=== PATIENT | male | born 2005 ===

== ENCOUNTER 2025-07-14 14:28 | Outpatient (REF) | payer OTHER, SELFPAY ==
--- NOTE | ~2025-07-14 | MR_ITS ---
EXAMINATION: MR HIP WITHOUT CONTRAST, RIGHT CLINICAL INFORMATION: Right hip pain COMPARISON: None available. TECHNIQUE: MRI of the right hip was obtained using routine sequences on a high-field strength magnet. FINDINGS: BONE/JOINTS: Right hip alignment is anatomic. No evidence of acute fracture, avascular necrosis. Small area of slightly asymmetrically prominent T2 signal in the proximal femoral shaft, could reflect physiological variant red marrow versus mild edema from etiology such as osseous contusion or stress reaction. No fracture plane is seen. No high-grade chondral loss. Hip joint space is maintained. Pubic rami appear intact. The visualized inferior right SI joint appears unremarkable. LABRUM: No labral tear is seen. No evidence of para labral cyst. MUSCLES/TENDONS: Minimal T2 signal along the deep surface of the gluteus medius tendon, could represent mild nonspecific edema or mild tendinosis. Gluteus minimus is intact. Minimal T2 signal in the iliopsoas myotendinous region, could reflect mild strain. The iliopsoas tendon is intact. JOINT FLUID/BURSA: No significant hip joint effusion. No significant greater trochanteric or iliopsoas bursitis. Additional findings:: No right groin lymphadenopathy. No acute findings in the partially visualized pelvis. On the coronal T1 sequence of the pelvis, there is normal left hip articulation. SI joints and symphysis pubis are intact.. MR/MR hip RT wo con IMPRESSION: 1. Small area of slightly asymmetrically prominent T2 signal in the proximal femoral shaft could represent physiological variant red marrow versus mild etiologies such as osseous contusion or stress reaction. 2. No labral tear is identified 3. Possible mild gluteus medius tendinosis, clinically correlate. 4. Possible mild iliopsoas myotendinous region strain.. Electronically signed by: Kanu Navarrete MD 07/14/2025 03:46 PM EST
--- OUTSIDE RECORDS SUMMARY | 2025-07-14 16:59 | XMS_ITS | Clinical Summary ---
Author Organization [facility] Address [address] [place] [address] Care Team Providers Care Senior Program Analyst Name Role Phone Lauren Bustos) Zoe Primary C are Provider Source Comments NOTE: The information displayed by Care Everywhere is extracted from the complete medical record and may not identify all current or past patient conditions.[facility] Allergies Active Allergy Reactions Criticality Noted Date Comments Dog Epithelium Skin Rash and/or Hives Low 8 Peanut - Dietary Anaphylaxis High 02/16/2018 Medications Fluticasone (FLONASE ALLERGY RELIEF) 50 mcg/actuation Nasl SpSnIndications :BILAT OTITIS MEDIA W EFFUSION Use 2 sprays in each nostril daily. Reduce to 1 spray in each nostril daily when symptoms improve 15.8 0 3 05/22/20 27 Active Albuterol (PROAIR/PROVENT IL/VENTOLIN) 90 mcg/actuation Inhl HFAAIndications :COMMUNITY ACQUIRED PNEUMONIA Inhale 2 puffs by mouth every 4 hours as needed for shortness of breath , wheezing or cough . 100 days supply for Asthma is 1 canister. Use with spacer device if prescribed. Shake well before use 6.7 g 10/27/2024 1:42 PM PST 5 10/27/19 27 Active Benzonatate (TESSALON PERLES) 100 mg Oral CapIndications: COMMUNITY ACQUIRED PNEUMONIA Take 1 capsule by mouth 3 times a day as needed for cough 30 capsule 10/27/2024 1:42 PM PST 5 10/27/19 27 Active Hydrocortisone 2.5 % Top CreaIndications :RASH Apply to affected area(s) 2 times a day 28 g 1 01/13/2025 2:16 PM PDT 5 01/14/20 27 Active Clotrimazole (LOTRIMIN AF/MYCELEX) 1 % Top CreaIndications :RASH Apply to affected area(s) 2 times a day 30 g 01/13/2025 2:16 PM PDT 5 01/14/20 27 Active Active Problems Problem Noted Date Diagnosed Date 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 PERENNIAL ALLERGIC RHINITIS 06/23/2020 INTERMITTENT ASTHMA 06/23/2020 FOOD ALLERGY 06/23/2020 [place] SPLINTS OF BILAT LEGS 06/23/2020 Resolved Problems Problem Noted Date Diagnosed Date Resolved Date COVID-19 DISEASE 04/23/2021 05/24/2021 COVID-19 TEST POSITIVE BY OUTSIDE LABORATORY 04/26/2021 HX OF COVID-19 DISEASE 04/23/202101/26 Immunizations Immunization Administration Dates Next Due COVID-19 mRNA, LNP-S, PF (Glimpse) PURPLE CAP 06/14/2021,05/17/2021 06/07/2021 DTaP (Diphtheria, Tetanus, a cellular Pertussis) 01/20/2010,10/23/2009,03/22/2007,,2005,2005 HAV ped/adol 2 dose yossi (Hepatitis A) 09/24/2007 ,03/22/2007 HBV ped/adol, 3dose yossi (Hepatitis B) 08/08/2006 ,2005,2005 HIB (Haemophilus influenzae b) 08/08/2008,2005,2005 HPV4 (Human papillomavirus, quadrivalent) 04/04/2017,05/16/2016 INF (Influenza) unspecified formulation 05/19/2016,06/25/2008,06/12/2007,01/2006,07/07/2006 INF D2K2-32 (Influenza, 2009 type) unspecified formulation 10/12/2009,09/09/2009 INFS pres free 6mos-adult (F luarix quadrivalent) (influenza) 06/23/2020 INFS pres free 6mos-adult (F luzone quadrivalent) (influenza) 05/05/2023 MENACWY (MENVEO) (MENINGOCOC NISHA OLIGOSACCHARIDE ACWY-135) 05/16/2016 MMR (Measles, Mumps, Rubella) 10/23/2009, 006 PCV7 (PREVNAR) (Pneumococcal conjugate, 7 valent) 08/08/2006,01/20/2006,2005,02/2005 KELLE (Polio ) 01/20/2010, 6,2005,02/2005 KELLE-IPV (Polio, Inactivated virus) 10/23/2009 Tdap (Tetanus, diphtheria, a cellular pertussis) 05/16/2016 SHANE (Varicella, chickenpox) 10/23/2009, 6 Social History Tobacco Use Types Packs/Day Years Used Date Smoking Tobacco: Never Passive Smoke Exposure: Yes Smokeless Tobacco: Never Tobacco Cessation:Counseling Given: Not Answered Sex and Gender Information Value Date Recorded Sex Assigned at Not on file Legal Sex Male 8:25 AM PST Gender Identity Not on file Sexual Orientation Not on file Last Filed Vital Signs Vital Sign Reading Time Taken Comments Blood Pressure 115/54 01/13/2025 1:25 PM PDT Pulse 62 01/13/2025 1:25 PM PDT Temperature 36.1 C (97 F) 01/13/2025 1:25 PM PDT Respiratory Rate 20 01/13/2025 1:25 PM PDT Oxygen Saturation 95% 01/13/2025 1:25 PM PDT Inhaled Oxygen Concentration - - Weight 71.9 kg (158 lb 8.2 oz) 01/13/2025 1:25 P M PDT Height 185.4 cm (6' 1 ) 01/13/2025 1:25 PM PDT Body Mass Index 20.91 01/13/2025 1:25 PM PDT Plan of Treatment Health Maintenance Due Date Last Done Comments IMM INFLUENZA (6 MO AND OLDE R) (#1) 05/05/2025 05/05/2023, 06/23/2020, 05/19/2016, Additional history exists IMM DTAP,TDAP,TD (42 DAYS-12 0 YRS) (7 - Td or Tdap) 05/16/2026 05/16/2016, 01/20/2010, 10/23/2009, Additional history exists IMM HPV (9-26 YRS) Completed 04/04/2017, 05/16/2016 Insurance [employer] Care Teams Senior Program Analyst Relationship Specialty Start Date End Date Lauren Bustos M.D., Zoe [address] [place] [address] PCP - General Family Practice 03/21/23
--- OUTSIDE RECORDS SUMMARY | 2025-07-14 17:00 | XMS_ITS | Encounter Summary ---
Author Organization [facility] Address [address] [place] [address] Care Team Providers Care Jewelry Dipper Name Role Phone Syd Waters) Ariela.O. Primary Care Provid er Lauren Bustos M.D., M.D. Primary C are Provider Reason for Visit * Reason Comments TEST RESULTS TEST RESULTS Encounter Details Date Type Department Care Team (Latest Contact Info) Description 10/25/2022 Call Center Telephone Encounter PEDIATRICS. [address] [place] [address] Syd Waters), D.O. [address] [place] [address] TEST RESULTS (TEST RESULTS) Social History Tobacco Use Types Packs/Day Years Used Date Smoking Tobacco: Passive Smo ke Exposure - Never Smoker Smokeless Tobacco: Never Sex and Gender Information Value Date Recorded Sex Assigned at Not on file Legal Sex Male 8:25 AM PST Gender Identity Not on file Sexual Orientation Not on file documented as of this encounter Plan of Treatment Not on file documented as of this encounter Visit Diagnoses Not on filedocumented in this encounter Care Teams Jewelry Dipper Relationship Specialty Start Date End Date Syd Waters), D.O. [address] [place] [address] PCP - General 04/07/22 03/20/23 Lauren Bustos M.D., [place].D. [address] [place] [phone] PCP - General Family Practice 03/21/23 documented as of this encounter
--- OUTSIDE RECORDS SUMMARY | 2025-07-14 17:00 | XMS_ITS | Encounter Summary ---
Author Organization [facility] Address [address] [facility] [place] [address] Care Team Providers Care Construction Inspector Name Role Phone Syd Waters) Ariela.OLucina Primary Care Provid er Lauren Bustos M.D., M.D. Primary C are Provider Encounter Details Date Type Department Care Team (Late st Contact Info) Description 07/21/2022 Orders Only [facility] ADMIN DEPT [address] [place] [address] Scal E-Visit, Provider Zoe Enriquez [address] [place] [address] VACCINATION FOR SARS-COV-2 Social History Tobacco Use Types Packs/Day Years [...] documented as of this encounter Visit Diagnoses Diagnosis VACCINATION FOR SARS-COV-2 documented in this encounter Care Teams Construction Inspector Relationship Specialty Start Date End Date Syd Waters), D.O. [address] [place] [address] PCP - General 04/07/22 03/20/23 Lauren Bustos), Zoe [address] [place] [address] PCP - General Family Practice 03/21/23 documented as of this encounter
--- OUTSIDE RECORDS SUMMARY | 2025-07-14 17:00 | XMS_ITS | Clinical Summary ---
Author Organization [facility] [facility] [place] [facility] [place] Address [address] [place] [address] Care Team Providers Care Chair Upholsterer Name Role Phone Unavailable Primary Care Provider Unavailabl e Allergies Active Allergy Reactions Criticality Noted Date Comments Amoxicillin-Pot Clavulanate Diarrhea 12/10/19 Peanut-Derived Hives High 12/10/2019 Immunizations Immunization Administration Dates Next Due (Chicken Pox) Varicella Live Vaccine 10/23/2009, 08/08/2006 DTaP 10/23/2009, 7,01/20/2006,2005,2005 H1N1 Vaccine 10/12/2009,09/09/2009 Hep-A Ped/Adol 2 Dose Schedule 09/24/2007,2006 Hib-HepB (COMVAX) 08/08/2006,2005,06/09/20 05 Inactivated Polio Vaccine (IPV) 10/23/19 10,01/20/2006,2005,2004 Influenza Vaccine (Unspecified) 06/25/20 08,06/12/2007,08/08/2006,2005 MMR Live Vaccine 10/23/2009,08/08/2006 Pneumococcal 7 Vaccine (PREVNAR-7) 08/08,01/20/2006,2005,2004 Social History Tobacco Use Types Packs/Day Years Used Date Smoking Tobacco: Never Assessed Drug Use (DAST) Answer Date Recorded DAST Total Score Not on file 05/03/2023 Sex and Gender Information Value Date Recorded Sex Assigned at Not on file Legal Sex Male 10:13 AM PDT Gender Identity Not on file Sexual Orientation Not on file Plan of Treatment Health Maintenance Due Date Last Done Comments Tetanus (6 - Tdap) 2016 10/23/2009, 0 03/22/2007, 01/20/2006, Additional history exists HPV Vaccine <= 26 Yrs (1 - Male 3-dose series) 2020 Meningococcal B (1 of 2 - Standard) 2021 Cholesterol Screening (Ages: 9-11 & 17-21) 2022 Influenza (#1) 2025 10/12/2009, 02/2010, 06/25/2008, Additional history exists COVID-19 Vaccine (1 - 2024- season) 2025 Shingles Vaccine (1 of 2) 2055 10/23/2009, 01/2006 Pneumococcal Vaccine Aged Out 08/08/2006, 01/20/2006, 2005, Additional history exists No longer eligible based on patient's age to complete this topic Hep A Vaccine Series Completed 09/24/2007, 03/22/20 07 Polio Vaccine Completed 10/23/2009, 01/02, 2005, Additional history exists Meningococcal MCV4 Vaccine Aged Out N o longer eligible based on patient's age to complete this topic
--- OUTSIDE RECORDS SUMMARY | 2025-07-14 17:00 | XMS_ITS | Encounter Summary ---
Author Organization [facility] Address [address] [place] [address] Care Team Providers Care Plumbing Designer Name Role Phone Unavailable Primary Care Provider Unavailabl e Prior Encounters Date Type Department Care Team Description 03/17/2025 1:30 PM PDT Office Visit [facility] [address] [facility], [address] [phone] Kwan Masters, JEN Last Filed Vital Signs Vital Sign Reading Time Taken Comments Blood Pressure 119/72 03/17/2025 1:42 PM PDT Pulse 76 03/17/2025 1:42 PM PDT Temperature - - Respiratory Rate - - Oxygen Saturation - - Inhaled Oxygen Concentration - - Weight - - Height - - Body Mass Index - - Plan of Treatment Upcoming Encounters Date Type Department Care Team (Late st Contact Info) Description 08/27/2025 10:30 AM PST Office Visit [facility] [address] [facility], [facility] [address] [place] [phone] Samantha Vazquez, JOSHUA [address] [place], [place] [phone] Procedures Procedure Name Priority Date/Time Associated Diagnosis Comments NEW PATIENT INTRAORAL - PERIAPICAL FIRST RADIOGRAPHIC IMAGE Routine 03/17/2025 1:30 PM PDT NEW PATIENT SPECIAL EXAM - ADULT Routine 03/17/2025 1:30 PM PDT NEW PATIENT INTRAORAL - PERIAPICAL EACH ADDITIONAL RADIOGRAPHIC IMAGE Routine 03/17/2025 1:30 PM PDT NEW PATIENT PANO Routine 03/17/2025 1:30 PM PDT Visit Diagnoses Not on file
--- OUTSIDE RECORDS SUMMARY | 2025-07-14 17:00 | XMS_ITS | Clinical Summary ---
Author Organization [facility] Address [address] [place] [address] Care Team Providers Care Nurse Midwife Name Role Phone Unavailable Primary Care Provider Unavailabl e Medications No known medications Active Problems No known active problems Social History Tobacco Use Types Packs/Day Years Used Date Smoking Tobacco: Never Assessed Sex and Gender Information Value Date Recorded Sex Assigned at Not on file Legal Sex Male 1:39 PM PST Gender Identity Not on file Sexual [...] Description 08/27/2025 10:30 AM PST Office Visit [facility] [address] [facility], [address] [place] [phone] Samantha Vazquez, DDS [address] [place] [address] Health Maintenance Due Date Last Done Comments Dental Prophylaxis 2005 Dental Oral Exam 09/18/2025 03/17/2025 Dental X-Ray: Bitewings 09/18/2025 03/17/2025 Dental X-Ray: Full Mouth 03/19/2028 03/18/2025, 03/04 Dental X-Ray: Panoramic 03/19/2028 03/18/2025, 03/17 Procedures Procedure Name Priority Date/Time Associated Diagnosis Comments NEW PATIENT PANO Routine 03/17/2025 1:30 PM PDT NEW PATIENT SPECIAL EXAM - ADULT Routine 03/17/2025 1:30 PM PDT from Last 3 Months or Most Recently Relevant to Health Maintenance
== END 2025-07-14 14:29 | disposition home or self-care (01) ==
LOC: HO.MRI 14:28
PROVIDERS: Visit Provider Family Medicine
DX: M25.551 Pain in right hip (principal)
CPT/HCPCS: 73721

== ENCOUNTER → 2025-07-14 14:46 | Outpatient (BNV) | payer OTHER, SELFPAY | PROVIDERS: Visit Provider Radiology Diagnostic Ultrasound | DX: M25.551 Pain in right hip (principal) | CPT/HCPCS: 73721 ==